=== PATIENT | female | born 1995 | race Two or more races ===

== ENCOUNTER 2017-07-12 12:55 | Observation (INO) | payer SELFPAY ==
[2017-07-12] MEDS ORDERED: PREN-96 PO (13:49)
== END 2017-07-12 13:58 | disposition left against medical advice (07) | DRG 781 ==
LOC: LDRP 12:55
PROVIDERS: ADMIT Specialist; ATTEND Specialist
DX: O26.899 Other specified pregnancy related conditions, unspecified trimester (principal); R10.9 Unspecified abdominal pain; Z3A.00 Weeks of gestation of pregnancy not specified
CPT/HCPCS: 59025; 81002; G0378